=== PATIENT | female | born 1960 | race Caucasian/White ===

== ENCOUNTER 2019-10-17 22:30 | Inpatient (IN) | payer OTHER ==
[~2019-10-17] VITALS: Ht 157.5 cm; Wt 62.4 kg
[2019-10-17 22:30] VITALS: BP 128/74
[~2019-10-17 22:30] MED LIST: FentaNYL CITRATE-PF 100 MCG/2 ML VIAL IVP ONE; HYDROmorphone 2 MG/ML SYRINGE IVP ONE
[2019-10-17] MEDS ORDERED: MAGNESIUM HYDROXIDE SUSPENSION 30 ML UDCUP PO PRN (23:15)
[2019-10-17] MEDS ORDERED: ACETAMINOPHEN 325 MG TABLET PO PRN (23:15)
[2019-10-17] MEDS ORDERED: ONDANSETRON HCL 4 MG/2 ML VIAL IVP PRN (23:15)
[2019-10-17] MEDS ORDERED: BISACODYL 10 MG RECTAL RECTAL SUPPOSITORY PR PRN (23:15)
[2019-10-17] MEDS: HYDROCODONE/ACETAMINOPHEN 5-325 MG TABLET PO PRN (23:50)
[2019-10-18] MEDS: HEPARIN SODIUM,PORCINE 5,000 UNITS/ML VIAL SQ SCH ×4 (00:37→23:58)
[2019-10-18] MEDS: HYDROCODONE/ACETAMINOPHEN 5-325 MG TABLET PO PRN ×4 (03:43→18:52)
[2019-10-18 05:20] VITALS: BP 130/56
[2019-10-18] MEDS: LEVOTHYROXINE SODIUM 25 MCG TABLET PO SCH (06:24)
[2019-10-18 07:41] VITALS: BP 111/62
[2019-10-18] MEDS: PANTOPRAZOLE SODIUM 40 MG DR TABLET PO SCH (08:01)
[2019-10-18] MEDS: MULTIVITAMINS WITH MINERALS, THERAPEUTIC TABLET PO SCH (08:01)
[2019-10-18] MEDS: CLOPIDOGREL BISULFATE 75 MG TABLET PO SCH (08:01)
[2019-10-18] MEDS: LISINOPRIL 20 MG TABLET PO SCH (08:01)
[2019-10-18] MEDS: OLANZapine 5 MG TABLET PO SCH (08:02)
[2019-10-18] MEDS: ATORVASTATIN CALCIUM 40 MG TABLET PO SCH (08:02)
[2019-10-18] MEDS: CITALOPRAM HYDROBROMIDE 20 MG TABLET PO SCH (08:02)
[2019-10-18] MEDS: ASPIRIN 81 MG EC TABLET PO SCH (08:02)
[2019-10-18] MEDS: HydrOXYzine HCL 25 MG TABLET PO SCH (08:03)
[2019-10-18] MEDS: DIVALPROEX SODIUM 250 MG ER TABLET PO SCH (08:03)
[2019-10-18] MEDS: ISOSORBIDE MONONITRATE 30 MG ER TABLET PO SCH (08:04)
[2019-10-18] MEDS: POLYETHYLENE GLYCOL 3350 17 GM PACKET PO SCH (08:05)
[2019-10-18] MEDS: DOCUSATE SODIUM 100 MG CAPSULE PO SCH ×2 (08:05→20:01)
[2019-10-18 11:18] LABS: GLUCOMETER DEV NAME(LOC) 6S.1; GLUCOSE,POINT OF CARE 121 MG/DL (70-110)
[2019-10-18] MEDS: MORPHINE SULFATE 2 MG/ML SYRINGE IVP PRN ×4 (11:50→23:58)
[2019-10-18 20:00] VITALS: BP 99/50
[2019-10-18] MEDS: ZOLPIDEM TARTRATE 5 MG TABLET PO PRN (20:00)
[2019-10-18] MEDS: GABAPENTIN 100 MG CAPSULE PO SCH (20:00)
[2019-10-19 04:30] VITALS: BP 160/84
[2019-10-19] MEDS: MORPHINE SULFATE 2 MG/ML SYRINGE IVP PRN ×5 (04:31→21:18)
[2019-10-19] MEDS: LEVOTHYROXINE SODIUM 25 MCG TABLET PO SCH (06:34)
[2019-10-19 08:23] VITALS: BP 140/88
[2019-10-19] MEDS: LISINOPRIL 20 MG TABLET PO SCH (08:27)
[2019-10-19] MEDS: ASPIRIN 81 MG EC TABLET PO SCH (08:27)
[2019-10-19] MEDS: ISOSORBIDE MONONITRATE 30 MG ER TABLET PO SCH (08:27)
[2019-10-19] MEDS: DOCUSATE SODIUM 100 MG CAPSULE PO SCH ×2 (08:27→21:00)
[2019-10-19] MEDS: OLANZapine 5 MG TABLET PO SCH (08:27)
[2019-10-19] MEDS: DIVALPROEX SODIUM 250 MG ER TABLET PO SCH (08:27)
[2019-10-19] MEDS: CITALOPRAM HYDROBROMIDE 20 MG TABLET PO SCH (08:27)
[2019-10-19] MEDS: ATORVASTATIN CALCIUM 40 MG TABLET PO SCH (08:27)
[2019-10-19] MEDS: CLOPIDOGREL BISULFATE 75 MG TABLET PO SCH (08:27)
[2019-10-19] MEDS: HydrOXYzine HCL 25 MG TABLET PO SCH (08:27)
[2019-10-19] MEDS: MULTIVITAMINS WITH MINERALS, THERAPEUTIC TABLET PO SCH (08:27)
[2019-10-19] MEDS: PANTOPRAZOLE SODIUM 40 MG DR TABLET PO SCH (08:27)
[2019-10-19] MEDS: HYDROCODONE/ACETAMINOPHEN 5-325 MG TABLET PO PRN ×4 (08:28→23:58)
[2019-10-19] MEDS: HEPARIN SODIUM,PORCINE 5,000 UNITS/ML VIAL SQ SCH ×2 (08:28→17:28)
[2019-10-19] MEDS: POLYETHYLENE GLYCOL 3350 17 GM PACKET PO SCH (09:00)
[2019-10-19 14:27] LABS: EOSINOPHILS % (AUTO) 2.4 % (1.0-6.0); HEMATOCRIT 25.2 % (36-46); HEMOGLOBIN 8.1 g/dL (12.0-16.0); LYMPHOCYTES # (AUTO) 1.6 K/uL (1.0-4.8); LYMPHOCYTES % (AUTO) 20.9 % (22.0-44.0); MEAN CORPUSCULAR HEMOGLOBIN 23.9 pg (26.0-34.0); MEAN CORPUSCULAR HGB CONC 32.2 G/dL (31.0-37.0); MEAN CORPUSCULAR VOLUME 74 fL (80-100); MONOCYTES # (AUTO) 0.6 K/uL (0.1-1.0); MONOCYTES % (AUTO) 8.5 % (2.0-9.0); NEUTROPHILS # (AUTO) 5.1 K/uL (1.8-7.7); NEUTROPHILS % (AUTO) 67.2 % (40.0-70.0); PLATELET COUNT (AUTO) 575 K/uL (150-450); RED BLOOD CELL COUNT(AUTO) 3.39 MIL/uL (4.00-5.20); RED CELL DISTRIBUTION WIDTH 25.2 % (11.5-14.5)
[2019-10-19 15:49] LABS: CALCIUM, TOTAL 9.2 mg/dL (8.8-10.5); CREATININE 1.56 mg/dL (0.60-1.30)
[2019-10-19 15:55] LABS: POTASSIUM 6.3 mmol/L (3.5-5.1)
[2019-10-19] MEDS ORDERED: SODIUM POLYSTYRENE SULFONATE 15 GM/60 ML SUSPENSION BOTTLE PO ONE (16:15)
[2019-10-19 19:36] VITALS: BP 105/55
[2019-10-19] MEDS: GABAPENTIN 100 MG CAPSULE PO SCH (19:36)
[2019-10-20] MEDS: MORPHINE SULFATE 2 MG/ML SYRINGE IVP PRN ×5 (03:13→19:42)
[2019-10-20 03:46] VITALS: BP 120/74
[2019-10-20 07:18] VITALS: BP 103/62
[2019-10-20] MEDS: HEPARIN SODIUM,PORCINE 5,000 UNITS/ML VIAL SQ SCH ×3 (07:39→16:24)
[2019-10-20] MEDS: LEVOTHYROXINE SODIUM 25 MCG TABLET PO SCH (07:39)
[2019-10-20] MEDS: POLYETHYLENE GLYCOL 3350 17 GM PACKET PO SCH (09:00)
[2019-10-20] MEDS: DOCUSATE SODIUM 100 MG CAPSULE PO SCH ×2 (09:00→21:00)
[2019-10-20] MEDS: LISINOPRIL 20 MG TABLET PO SCH (09:00)
[2019-10-20 09:40] VITALS: BP 108/64
[2019-10-20] MEDS: HYDROCODONE/ACETAMINOPHEN 5-325 MG TABLET PO PRN ×4 (09:41→22:21)
[2019-10-20] MEDS: ATORVASTATIN CALCIUM 40 MG TABLET PO SCH (09:41)
[2019-10-20] MEDS: CLOPIDOGREL BISULFATE 75 MG TABLET PO SCH (09:41)
[2019-10-20] MEDS: OLANZapine 5 MG TABLET PO SCH (09:41)
[2019-10-20] MEDS: MULTIVITAMINS WITH MINERALS, THERAPEUTIC TABLET PO SCH (09:41)
[2019-10-20] MEDS: ASPIRIN 81 MG EC TABLET PO SCH (09:42)
[2019-10-20] MEDS: CITALOPRAM HYDROBROMIDE 20 MG TABLET PO SCH (09:42)
[2019-10-20] MEDS: HydrOXYzine HCL 25 MG TABLET PO SCH (09:42)
[2019-10-20] MEDS: DIVALPROEX SODIUM 250 MG ER TABLET PO SCH (09:42)
[2019-10-20] MEDS: ISOSORBIDE MONONITRATE 30 MG ER TABLET PO SCH (09:42)
[2019-10-20] MEDS: PANTOPRAZOLE SODIUM 40 MG DR TABLET PO SCH (09:42)
[2019-10-20] MEDS ORDERED: SODIUM CHLORIDE 0.9% 1,000 ML IV ONE (13:00)
[2019-10-20 13:59] LABS: CALCIUM, TOTAL 9.2 mg/dL (8.8-10.5); CREATININE 1.22 mg/dL (0.60-1.30); POTASSIUM 4.8 mmol/L (3.5-5.1)
[2019-10-20 19:25] VITALS: BP 104/59
[2019-10-20] MEDS: GABAPENTIN 100 MG CAPSULE PO SCH (19:41)
[2019-10-21] MEDS: MORPHINE SULFATE 2 MG/ML SYRINGE IVP PRN ×6 (00:28→23:09)
[2019-10-21] MEDS: HEPARIN SODIUM,PORCINE 5,000 UNITS/ML VIAL SQ SCH ×4 (00:35→23:09)
[2019-10-21 03:58] VITALS: BP 121/74
[2019-10-21] MEDS: LEVOTHYROXINE SODIUM 25 MCG TABLET PO SCH (05:59)
[2019-10-21 08:27] VITALS: BP 144/74
[2019-10-21] MEDS: DOCUSATE SODIUM 100 MG CAPSULE PO SCH ×2 (08:32→20:15)
[2019-10-21] MEDS: HydrOXYzine HCL 25 MG TABLET PO SCH (08:32)
[2019-10-21] MEDS: ATORVASTATIN CALCIUM 40 MG TABLET PO SCH (08:32)
[2019-10-21] MEDS: PANTOPRAZOLE SODIUM 40 MG DR TABLET PO SCH (08:32)
[2019-10-21] MEDS: HYDROCODONE/ACETAMINOPHEN 5-325 MG TABLET PO PRN ×3 (08:32→21:06)
[2019-10-21] MEDS: ISOSORBIDE MONONITRATE 30 MG ER TABLET PO SCH (08:32)
[2019-10-21] MEDS: OLANZapine 5 MG TABLET PO SCH (08:32)
[2019-10-21] MEDS: ASPIRIN 81 MG EC TABLET PO SCH (08:32)
[2019-10-21] MEDS: DIVALPROEX SODIUM 250 MG ER TABLET PO SCH (08:32)
[2019-10-21] MEDS: MULTIVITAMINS WITH MINERALS, THERAPEUTIC TABLET PO SCH (08:32)
[2019-10-21] MEDS: LISINOPRIL 20 MG TABLET PO SCH (08:33)
[2019-10-21] MEDS: CITALOPRAM HYDROBROMIDE 20 MG TABLET PO SCH (08:33)
[2019-10-21] MEDS: CLOPIDOGREL BISULFATE 75 MG TABLET PO SCH (08:33)
[2019-10-21] MEDS: POLYETHYLENE GLYCOL 3350 17 GM PACKET PO SCH (10:12)
[2019-10-21 11:37] VITALS: BP 98/54
[2019-10-21 20:05] VITALS: BP 88/50
[2019-10-21] MEDS: GABAPENTIN 100 MG CAPSULE PO SCH (20:15)
[2019-10-21 21:02] VITALS: BP 120/73
[2019-10-22] MEDS: HYDROCODONE/ACETAMINOPHEN 5-325 MG TABLET PO PRN ×2 (02:55→11:51)
[2019-10-22 05:24] VITALS: BP 130/78
[2019-10-22] MEDS: MORPHINE SULFATE 2 MG/ML SYRINGE IVP PRN ×3 (05:33→20:42)
[2019-10-22] MEDS: LEVOTHYROXINE SODIUM 25 MCG TABLET PO SCH (06:04)
[2019-10-22] MEDS: HEPARIN SODIUM,PORCINE 5,000 UNITS/ML VIAL SQ SCH ×3 (08:00→22:58)
[2019-10-22 08:23] VITALS: BP 133/58
[2019-10-22] MEDS: DIVALPROEX SODIUM 250 MG ER TABLET PO SCH (08:25)
[2019-10-22] MEDS: CITALOPRAM HYDROBROMIDE 20 MG TABLET PO SCH (08:25)
[2019-10-22] MEDS: OLANZapine 5 MG TABLET PO SCH (08:25)
[2019-10-22] MEDS: LISINOPRIL 20 MG TABLET PO SCH (08:25)
[2019-10-22] MEDS: ATORVASTATIN CALCIUM 40 MG TABLET PO SCH (08:26)
[2019-10-22] MEDS: DOCUSATE SODIUM 100 MG CAPSULE PO SCH ×2 (08:26→20:59)
[2019-10-22] MEDS: ISOSORBIDE MONONITRATE 30 MG ER TABLET PO SCH (08:26)
[2019-10-22] MEDS: MULTIVITAMINS WITH MINERALS, THERAPEUTIC TABLET PO SCH (08:26)
[2019-10-22] MEDS: PANTOPRAZOLE SODIUM 40 MG DR TABLET PO SCH (08:27)
[2019-10-22] MEDS: HydrOXYzine HCL 25 MG TABLET PO SCH (08:27)
[2019-10-22] MEDS: ASPIRIN 81 MG EC TABLET PO SCH (08:28)
[2019-10-22] MEDS: POLYETHYLENE GLYCOL 3350 17 GM PACKET PO SCH (08:28)
[2019-10-22] MEDS: CLOPIDOGREL BISULFATE 75 MG TABLET PO SCH (08:28)
[2019-10-22 09:33] LABS: BASOPHILS % (AUTO) 0.8 % (0.0-2.0); EOSINOPHILS % (AUTO) 2.8 % (1.0-6.0); HEMATOCRIT 25.7 % (36-46); HEMOGLOBIN 8.1 g/dL (12.0-16.0); LYMPHOCYTES # (AUTO) 1.8 K/uL (1.0-4.8); LYMPHOCYTES % (AUTO) 25.3 % (22.0-44.0); MEAN CORPUSCULAR HEMOGLOBIN 23.4 pg (26.0-34.0); MEAN CORPUSCULAR HGB CONC 31.6 G/dL (31.0-37.0); MEAN CORPUSCULAR VOLUME 74 fL (80-100); MONOCYTES # (AUTO) 0.8 K/uL (0.1-1.0); MONOCYTES % (AUTO) 11.1 % (2.0-9.0); NEUTROPHILS # (AUTO) 4.2 K/uL (1.8-7.7); PLATELET COUNT (AUTO) 642 K/uL (150-450); RED BLOOD CELL COUNT(AUTO) 3.47 MIL/uL (4.00-5.20); RED CELL DISTRIBUTION WIDTH 24.7 % (11.5-14.5)
[2019-10-22 09:45] LABS: CALCIUM, TOTAL 9.3 mg/dL (8.8-10.5); CREATININE 1.2 mg/dL (0.60-1.30); POTASSIUM 5.5 mmol/L (3.5-5.1)
[2019-10-22 09:49] LABS: PROTHROMBIN TIME 10.4 SEC (9.4-11.6)
[2019-10-22] MEDS ORDERED: VANCOMYCIN HCL 1 GM/VIAL ONE (10:20)
[2019-10-22] MEDS ORDERED: GELATIN SPONGE,ABSORBABLE 50 MM TP ONE (10:20)
[2019-10-22] MEDS ORDERED: BUPIVACAINE HCL/PF 0.5% 30 ML VIAL ONE (10:20)
[2019-10-22] MEDS ORDERED: MUPIROCIN CALCIUM 2% 22 GM OINTMENT ONE (10:20)
[2019-10-22] MEDS ORDERED: SODIUM CL IRRIG SOLN BAG 3,000 ML IRRIG ONE (10:20)
[2019-10-22] MEDS ORDERED: MICROFIBRILLAR COLLAGEN 1 GM PACKAGE TP ONE (10:20)
[2019-10-22] MEDS ORDERED: THROMBIN, BOVINE 20000 UNITS/VIAL POWDER TP ONE (10:21)
[2019-10-22] MEDS ORDERED: BUPIVACAINE LIPOSOME/PF 1.3%-13.3MG/ML SUSPENSION 10 ML VIAL INJ ONE (10:30)
[2019-10-22] MEDS ORDERED: NEOSTIGMINE METHYLSULFATE 1 MG/ML 10 ML VIAL IVP ONE (12:00)
[2019-10-22] MEDS ORDERED: GLYCOPYRROLATE 0.2 MG/ML VIAL IM ONE (12:00)
[2019-10-22] MEDS ORDERED: ONDANSETRON HCL 4 MG/2 ML VIAL IVP ONE (12:00)
[2019-10-22] MEDS ORDERED: ROCURONIUM BROMIDE 10 MG/ML 5 ML VIAL IVP ONE (12:00)
[2019-10-22] MEDS ORDERED: LIDOCAINE/PF 2% 5 ML VIAL INJ ONE (12:00)
[2019-10-22] MEDS ORDERED: PROPOFOL 1% 20 ML VIAL IVP ONE (12:00)
[2019-10-22] MEDS ORDERED: 0.9% SODIUM CHLORIDE 10 ML VIAL IVP ONE (12:00)
[2019-10-22] MEDS ORDERED: EPHEDrine SULFATE 50 MG/ML VIAL IM ONE (12:00)
[2019-10-22] MEDS ORDERED: RINGERS SOLUTION,LACTATED 1,000 ML IV ONE ×2 (13:11→13:30)
[2019-10-22] MEDS ORDERED: BUPIVACAINE HCL/PF 0.25% 30 ML VIAL ONE (15:11)
[2019-10-22] MEDS ORDERED: HYDROmorphone 2 MG/ML SYRINGE ONE (16:57)
[2019-10-22 20:07] VITALS: BP 130/76
[2019-10-22] MEDS: ZOLPIDEM TARTRATE 5 MG TABLET PO PRN (20:42)
[2019-10-22] MEDS: GABAPENTIN 100 MG CAPSULE PO SCH (20:43)
[2019-10-22] MEDS: CeFAZolin 1 GM/DEXTROSE 50 ML IV SCH (21:59)
[2019-10-22] MEDS ORDERED: MORPHINE SULFATE 2 MG/ML SYRINGE IVP ONE (22:45)
[2019-10-23] MEDS: MORPHINE SULFATE 2 MG/ML SYRINGE IVP PRN ×3 (03:17→15:09)
[2019-10-23] MEDS: LEVOTHYROXINE SODIUM 25 MCG TABLET PO SCH (06:11)
[2019-10-23] MEDS: CeFAZolin 1 GM/DEXTROSE 50 ML IV SCH ×3 (06:14→21:47)
[2019-10-23] MEDS: HYDROCODONE/ACETAMINOPHEN 5-325 MG TABLET PO PRN ×3 (06:14→20:41)
[2019-10-23 07:15] LABS: BASOPHILS % (AUTO) 0.8 % (0.0-2.0); EOSINOPHILS % (AUTO) 2.3 % (1.0-6.0); HEMATOCRIT 24.8 % (36-46); HEMOGLOBIN 7.8 g/dL (12.0-16.0); LYMPHOCYTES # (AUTO) 1.5 K/uL (1.0-4.8); LYMPHOCYTES % (AUTO) 21.9 % (22.0-44.0); MEAN CORPUSCULAR HEMOGLOBIN 23.7 pg (26.0-34.0); MEAN CORPUSCULAR HGB CONC 31.3 G/dL (31.0-37.0); MEAN CORPUSCULAR VOLUME 76 fL (80-100); MONOCYTES # (AUTO) 0.8 K/uL (0.1-1.0); MONOCYTES % (AUTO) 11.7 % (2.0-9.0); NEUTROPHILS # (AUTO) 4.3 K/uL (1.8-7.7); NEUTROPHILS % (AUTO) 63.3 % (40.0-70.0); PLATELET COUNT (AUTO) 688 K/uL (150-450); RED BLOOD CELL COUNT(AUTO) 3.28 MIL/uL (4.00-5.20)
[2019-10-23 07:46] LABS: % IRON SATURATION 3.7 % (22-44)
[2019-10-23 08:07] LABS: CALCIUM, TOTAL 9.4 mg/dL (8.8-10.5); CREATININE 1.35 mg/dL (0.60-1.30)
[2019-10-23] MEDS: POLYETHYLENE GLYCOL 3350 17 GM PACKET PO SCH (08:08)
[2019-10-23] MEDS: CITALOPRAM HYDROBROMIDE 20 MG TABLET PO SCH (08:08)
[2019-10-23] MEDS: DIVALPROEX SODIUM 250 MG ER TABLET PO SCH (08:08)
[2019-10-23] MEDS: ISOSORBIDE MONONITRATE 30 MG ER TABLET PO SCH (08:08)
[2019-10-23] MEDS: HydrOXYzine HCL 25 MG TABLET PO SCH (08:09)
[2019-10-23] MEDS: ATORVASTATIN CALCIUM 40 MG TABLET PO SCH (08:09)
[2019-10-23] MEDS: HEPARIN SODIUM,PORCINE 5,000 UNITS/ML VIAL SQ SCH ×2 (08:09→17:16)
[2019-10-23] MEDS: LISINOPRIL 20 MG TABLET PO SCH (08:10)
[2019-10-23] MEDS: DOCUSATE SODIUM 100 MG CAPSULE PO SCH ×2 (08:10→20:40)
[2019-10-23] MEDS: MULTIVITAMINS WITH MINERALS, THERAPEUTIC TABLET PO SCH (08:10)
[2019-10-23] MEDS: ASPIRIN 81 MG EC TABLET PO SCH (08:10)
[2019-10-23] MEDS: CLOPIDOGREL BISULFATE 75 MG TABLET PO SCH (08:10)
[2019-10-23] MEDS: OLANZapine 5 MG TABLET PO SCH (08:10)
[2019-10-23] MEDS: PANTOPRAZOLE SODIUM 40 MG DR TABLET PO SCH (08:10)
[2019-10-23 12:28] VITALS: BP 21/69
[2019-10-23] MEDS: FERROUS SULFATE 325 MG EC TABLET PO SCH (18:30)
[2019-10-23 20:19] VITALS: BP 92/62
[2019-10-23] MEDS: GABAPENTIN 100 MG CAPSULE PO SCH (20:40)
[2019-10-23] MEDS: ZOLPIDEM TARTRATE 5 MG TABLET PO PRN (21:43)
[2019-10-24] MEDS: MORPHINE SULFATE 2 MG/ML SYRINGE IVP PRN ×5 (00:56→17:12)
[2019-10-24] MEDS: HYDROCODONE/ACETAMINOPHEN 5-325 MG TABLET PO PRN ×3 (02:19→20:05)
[2019-10-24] MEDS: CeFAZolin 1 GM/DEXTROSE 50 ML IV SCH ×2 (05:53→15:26)
[2019-10-24] MEDS: LEVOTHYROXINE SODIUM 25 MCG TABLET PO SCH (05:54)
[2019-10-24] MEDS: DOCUSATE SODIUM 100 MG CAPSULE PO SCH ×2 (09:00→20:03)
[2019-10-24] MEDS: LISINOPRIL 20 MG TABLET PO SCH (09:00)
[2019-10-24 10:12] VITALS: BP 123/56
[2019-10-24] MEDS: POLYETHYLENE GLYCOL 3350 17 GM PACKET PO SCH (10:15)
[2019-10-24] MEDS: ISOSORBIDE MONONITRATE 30 MG ER TABLET PO SCH (10:15)
[2019-10-24] MEDS: ATORVASTATIN CALCIUM 40 MG TABLET PO SCH (10:16)
[2019-10-24] MEDS: CITALOPRAM HYDROBROMIDE 20 MG TABLET PO SCH (10:16)
[2019-10-24] MEDS: OLANZapine 5 MG TABLET PO SCH (10:16)
[2019-10-24] MEDS: HydrOXYzine HCL 25 MG TABLET PO SCH (10:16)
[2019-10-24] MEDS: MULTIVITAMINS WITH MINERALS, THERAPEUTIC TABLET PO SCH (10:16)
[2019-10-24] MEDS: DIVALPROEX SODIUM 250 MG ER TABLET PO SCH (10:16)
[2019-10-24] MEDS: FERROUS SULFATE 325 MG EC TABLET PO SCH ×3 (10:16→17:15)
[2019-10-24] MEDS: ASPIRIN 81 MG EC TABLET PO SCH (10:17)
[2019-10-24] MEDS: HEPARIN SODIUM,PORCINE 5,000 UNITS/ML VIAL SQ SCH ×3 (10:17→17:12)
[2019-10-24] MEDS: CLOPIDOGREL BISULFATE 75 MG TABLET PO SCH (10:17)
[2019-10-24] MEDS: PANTOPRAZOLE SODIUM 40 MG DR TABLET PO SCH (10:18)
[2019-10-24 11:36] VITALS: BP 124/70
[2019-10-24 13:01] LABS: BASOPHILS % (AUTO) 0.8 % (0.0-2.0); EOSINOPHILS % (AUTO) 2.8 % (1.0-6.0); HEMATOCRIT 28.4 % (36-46); HEMOGLOBIN 8.9 g/dL (12.0-16.0); LYMPHOCYTES # (AUTO) 2.2 K/uL (1.0-4.8); LYMPHOCYTES % (AUTO) 27.4 % (22.0-44.0); MEAN CORPUSCULAR HEMOGLOBIN 23.7 pg (26.0-34.0); MEAN CORPUSCULAR HGB CONC 31.1 G/dL (31.0-37.0); MEAN CORPUSCULAR VOLUME 76 fL (80-100); MONOCYTES # (AUTO) 0.8 K/uL (0.1-1.0); MONOCYTES % (AUTO) 9.8 % (2.0-9.0); NEUTROPHILS # (AUTO) 4.8 K/uL (1.8-7.7); NEUTROPHILS % (AUTO) 59.2 % (40.0-70.0); RED BLOOD CELL COUNT(AUTO) 3.74 MIL/uL (4.00-5.20); RED CELL DISTRIBUTION WIDTH 24.9 % (11.5-14.5)
[2019-10-24 13:04] LABS: CALCIUM, TOTAL 9.5 mg/dL (8.8-10.5); CREATININE 1.34 mg/dL (0.60-1.30); POTASSIUM 4.8 mmol/L (3.5-5.1)
[2019-10-24 13:08] LABS: PLATELET COUNT (AUTO) 771 K/uL (150-450)
[2019-10-24 15:47] VITALS: BP 93/60
[2019-10-24 17:05] VITALS: BP 119/66
[2019-10-24] MEDS: GABAPENTIN 100 MG CAPSULE PO SCH (20:03)
[2019-10-24 20:48] VITALS: BP 108/48
[2019-10-25] MEDS: MORPHINE SULFATE 2 MG/ML SYRINGE IVP PRN ×3 (00:13→10:59)
[2019-10-25] MEDS: HEPARIN SODIUM,PORCINE 5,000 UNITS/ML VIAL SQ SCH ×3 (00:13→16:48)
[2019-10-25] MEDS: LEVOTHYROXINE SODIUM 25 MCG TABLET PO SCH (06:09)
[2019-10-25 07:32] LABS: CALCIUM, TOTAL 9.6 mg/dL (8.8-10.5); CREATININE 1.36 mg/dL (0.60-1.30); POTASSIUM 5.1 mmol/L (3.5-5.1)
[2019-10-25 07:46] LABS: BASOPHILS % (AUTO) 1.1 % (0.0-2.0); HEMOGLOBIN 8.6 g/dL (12.0-16.0); LYMPHOCYTES # (AUTO) 2.7 K/uL (1.0-4.8); LYMPHOCYTES % (AUTO) 33.1 % (22.0-44.0); MEAN CORPUSCULAR HEMOGLOBIN 24.2 pg (26.0-34.0); MEAN CORPUSCULAR HGB CONC 31.8 G/dL (31.0-37.0); MEAN CORPUSCULAR VOLUME 76 fL (80-100); MONOCYTES # (AUTO) 0.9 K/uL (0.1-1.0); MONOCYTES % (AUTO) 11.7 % (2.0-9.0); NEUTROPHILS # (AUTO) 4.1 K/uL (1.8-7.7); NEUTROPHILS % (AUTO) 51.1 % (40.0-70.0); PLATELET COUNT (AUTO) 713 K/uL (150-450); RED BLOOD CELL COUNT(AUTO) 3.54 MIL/uL (4.00-5.20); RED CELL DISTRIBUTION WIDTH 23.4 % (11.5-14.5)
[2019-10-25] MEDS: DIVALPROEX SODIUM 250 MG ER TABLET PO SCH (08:29)
[2019-10-25] MEDS: ASPIRIN 81 MG EC TABLET PO SCH (08:29)
[2019-10-25] MEDS: CITALOPRAM HYDROBROMIDE 20 MG TABLET PO SCH (08:29)
[2019-10-25] MEDS: ATORVASTATIN CALCIUM 40 MG TABLET PO SCH (08:29)
[2019-10-25] MEDS: CLOPIDOGREL BISULFATE 75 MG TABLET PO SCH (08:29)
[2019-10-25] MEDS: POLYETHYLENE GLYCOL 3350 17 GM PACKET PO SCH (08:30)
[2019-10-25] MEDS: PANTOPRAZOLE SODIUM 40 MG DR TABLET PO SCH (08:30)
[2019-10-25] MEDS: OLANZapine 5 MG TABLET PO SCH (08:30)
[2019-10-25] MEDS: LISINOPRIL 20 MG TABLET PO SCH (08:30)
[2019-10-25] MEDS: FERROUS SULFATE 325 MG EC TABLET PO SCH ×3 (08:30→16:48)
[2019-10-25] MEDS: HydrOXYzine HCL 25 MG TABLET PO SCH (08:30)
[2019-10-25] MEDS: DOCUSATE SODIUM 100 MG CAPSULE PO SCH ×2 (08:30→20:15)
[2019-10-25] MEDS: ISOSORBIDE MONONITRATE 30 MG ER TABLET PO SCH (08:30)
[2019-10-25] MEDS: MULTIVITAMINS WITH MINERALS, THERAPEUTIC TABLET PO SCH (08:30)
[2019-10-25 08:39] VITALS: BP 104/56
[2019-10-25] MEDS: HYDROCODONE/ACETAMINOPHEN 5-325 MG TABLET PO PRN (09:33)
[2019-10-25] MEDS ORDERED: PNEUMOCOCCAL VACCINE POLYVALENT 0.5 ML VIAL [PPSV23] IM ONE (13:15)
[2019-10-25] MEDS ORDERED: MAGNESIUM HYDROXIDE SUSPENSION 30 ML UDCUP PO PRN (13:15)
[2019-10-25] MEDS: OxyCODONE HCL/ACETAMINOPHEN 5-325 MG TABLET PO PRN ×2 (15:06→18:56)
[2019-10-25 16:30] VITALS: BP 120/75
[2019-10-25] MEDS: GABAPENTIN 100 MG CAPSULE PO SCH (20:15)
[2019-10-26] MEDS: HEPARIN SODIUM,PORCINE 5,000 UNITS/ML VIAL SQ SCH ×3 (00:07→16:03)
[2019-10-26] MEDS: OxyCODONE HCL/ACETAMINOPHEN 5-325 MG TABLET PO PRN ×4 (00:59→20:53)
[2019-10-26 04:00] VITALS: BP 131/54
[2019-10-26] MEDS: LEVOTHYROXINE SODIUM 25 MCG TABLET PO SCH (05:47)
[2019-10-26] MEDS: HYDROCODONE/ACETAMINOPHEN 5-325 MG TABLET PO PRN (05:47)
[2019-10-26 08:17] VITALS: BP 130/62
[2019-10-26] MEDS: OLANZapine 5 MG TABLET PO SCH (08:29)
[2019-10-26] MEDS: FERROUS SULFATE 325 MG EC TABLET PO SCH ×3 (08:29→18:45)
[2019-10-26] MEDS: CLOPIDOGREL BISULFATE 75 MG TABLET PO SCH (08:30)
[2019-10-26] MEDS: DOCUSATE SODIUM 100 MG CAPSULE PO SCH ×2 (08:30→20:43)
[2019-10-26] MEDS: MULTIVITAMINS WITH MINERALS, THERAPEUTIC TABLET PO SCH (08:36)
[2019-10-26] MEDS: ASPIRIN 81 MG EC TABLET PO SCH (08:36)
[2019-10-26] MEDS: LISINOPRIL 20 MG TABLET PO SCH (08:36)
[2019-10-26] MEDS: ATORVASTATIN CALCIUM 40 MG TABLET PO SCH (08:38)
[2019-10-26] MEDS: ISOSORBIDE MONONITRATE 30 MG ER TABLET PO SCH (08:38)
[2019-10-26] MEDS: HydrOXYzine HCL 25 MG TABLET PO SCH (08:39)
[2019-10-26] MEDS: POLYETHYLENE GLYCOL 3350 17 GM PACKET PO SCH (08:39)
[2019-10-26] MEDS: GABAPENTIN 100 MG CAPSULE PO SCH (08:39)
[2019-10-26] MEDS: CITALOPRAM HYDROBROMIDE 20 MG TABLET PO SCH (08:39)
[2019-10-26] MEDS: DIVALPROEX SODIUM 250 MG ER TABLET PO SCH (08:39)
[2019-10-26] MEDS: PANTOPRAZOLE SODIUM 40 MG DR TABLET PO SCH (08:40)
[2019-10-26 13:22] LABS: BASOPHILS % (AUTO) 1.3 % (0.0-2.0); EOSINOPHILS % (AUTO) 3.2 % (1.0-6.0); HEMATOCRIT 25.4 % (36-46); HEMOGLOBIN 8.1 g/dL (12.0-16.0); LYMPHOCYTES # (AUTO) 2.4 K/uL (1.0-4.8); LYMPHOCYTES % (AUTO) 30.6 % (22.0-44.0); MEAN CORPUSCULAR HEMOGLOBIN 24.1 pg (26.0-34.0); MEAN CORPUSCULAR HGB CONC 31.7 G/dL (31.0-37.0); MEAN CORPUSCULAR VOLUME 76 fL (80-100); MONOCYTES # (AUTO) 0.8 K/uL (0.1-1.0); MONOCYTES % (AUTO) 10.1 % (2.0-9.0); NEUTROPHILS # (AUTO) 4.3 K/uL (1.8-7.7); NEUTROPHILS % (AUTO) 54.8 % (40.0-70.0); RED BLOOD CELL COUNT(AUTO) 3.35 MIL/uL (4.00-5.20); RED CELL DISTRIBUTION WIDTH 24.5 % (11.5-14.5)
[2019-10-26 13:35] LABS: PLATELET COUNT (AUTO) 788 K/uL (150-450)
[2019-10-26 13:51] LABS: CALCIUM, TOTAL 9.2 mg/dL (8.8-10.5); CREATININE 1.45 mg/dL (0.60-1.30)
[2019-10-26 20:00] VITALS: BP_SYST 116; BP_SYST 131; BP_DIAS 54; BP_DIAS 59
[2019-10-27] MEDS: HEPARIN SODIUM,PORCINE 5,000 UNITS/ML VIAL SQ SCH ×3 (00:11→17:25)
[2019-10-27] MEDS: HYDROCODONE/ACETAMINOPHEN 5-325 MG TABLET PO PRN ×4 (02:53→18:25)
[2019-10-27] MEDS: OxyCODONE HCL/ACETAMINOPHEN 5-325 MG TABLET PO PRN ×4 (03:13→22:29)
[2019-10-27 04:00] VITALS: BP 111/51
[2019-10-27] MEDS: LEVOTHYROXINE SODIUM 25 MCG TABLET PO SCH (05:44)
[2019-10-27 08:05] VITALS: BP 139/79
[2019-10-27] MEDS: OLANZapine 5 MG TABLET PO SCH (08:40)
[2019-10-27] MEDS: ATORVASTATIN CALCIUM 40 MG TABLET PO SCH (08:40)
[2019-10-27] MEDS: ASPIRIN 81 MG EC TABLET PO SCH (08:41)
[2019-10-27] MEDS: FERROUS SULFATE 325 MG EC TABLET PO SCH ×3 (08:41→17:24)
[2019-10-27] MEDS: CITALOPRAM HYDROBROMIDE 20 MG TABLET PO SCH (08:41)
[2019-10-27] MEDS: CLOPIDOGREL BISULFATE 75 MG TABLET PO SCH (08:41)
[2019-10-27] MEDS: HydrOXYzine HCL 25 MG TABLET PO SCH (08:41)
[2019-10-27] MEDS: PANTOPRAZOLE SODIUM 40 MG DR TABLET PO SCH (08:41)
[2019-10-27] MEDS: DOCUSATE SODIUM 100 MG CAPSULE PO SCH ×2 (08:42→20:40)
[2019-10-27] MEDS: ISOSORBIDE MONONITRATE 30 MG ER TABLET PO SCH (08:42)
[2019-10-27] MEDS: MULTIVITAMINS WITH MINERALS, THERAPEUTIC TABLET PO SCH (08:42)
[2019-10-27] MEDS: DIVALPROEX SODIUM 250 MG ER TABLET PO SCH (08:42)
[2019-10-27] MEDS: LISINOPRIL 20 MG TABLET PO SCH (09:00)
[2019-10-27] MEDS: POLYETHYLENE GLYCOL 3350 17 GM PACKET PO SCH (09:00)
[2019-10-27 15:12] VITALS: BP 122/72
[2019-10-27] MEDS: ZOLPIDEM TARTRATE 5 MG TABLET PO PRN (20:40)
[2019-10-27] MEDS: GABAPENTIN 100 MG CAPSULE PO SCH (20:40)
[2019-10-27 21:37] VITALS: BP 118/70
[2019-10-28] MEDS: HYDROCODONE/ACETAMINOPHEN 5-325 MG TABLET PO PRN ×3 (03:07→19:57)
[2019-10-28] MEDS: LEVOTHYROXINE SODIUM 25 MCG TABLET PO SCH (05:40)
[2019-10-28] MEDS: OxyCODONE HCL/ACETAMINOPHEN 5-325 MG TABLET PO PRN ×3 (06:59→23:57)
[2019-10-28 07:01] LABS: BASOPHILS % (AUTO) 1.5 % (0.0-2.0); EOSINOPHILS % (AUTO) 3.4 % (1.0-6.0); HEMATOCRIT 26.8 % (36-46); HEMOGLOBIN 8.5 g/dL (12.0-16.0); LYMPHOCYTES # (AUTO) 2.1 K/uL (1.0-4.8); LYMPHOCYTES % (AUTO) 33.8 % (22.0-44.0); MEAN CORPUSCULAR HEMOGLOBIN 24.4 pg (26.0-34.0); MEAN CORPUSCULAR HGB CONC 31.7 G/dL (31.0-37.0); MEAN CORPUSCULAR VOLUME 77 fL (80-100); MONOCYTES # (AUTO) 0.6 K/uL (0.1-1.0); MONOCYTES % (AUTO) 9.4 % (2.0-9.0); NEUTROPHILS # (AUTO) 3.2 K/uL (1.8-7.7); NEUTROPHILS % (AUTO) 51.9 % (40.0-70.0); RED BLOOD CELL COUNT(AUTO) 3.49 MIL/uL (4.00-5.20); RED CELL DISTRIBUTION WIDTH 24.8 % (11.5-14.5)
[2019-10-28 07:12] LABS: CALCIUM, TOTAL 9.2 mg/dL (8.8-10.5); CREATININE 1.71 mg/dL (0.60-1.30); POTASSIUM 5.4 mmol/L (3.5-5.1)
[2019-10-28 07:13] LABS: PLATELET COUNT (AUTO) 825 K/uL (150-450)
[2019-10-28 07:29] VITALS: BP 95/55
[2019-10-28] MEDS: LISINOPRIL 20 MG TABLET PO SCH (09:00)
[2019-10-28] MEDS: POLYETHYLENE GLYCOL 3350 17 GM PACKET PO SCH (09:00)
[2019-10-28] MEDS: HydrOXYzine HCL 25 MG TABLET PO SCH (09:15)
[2019-10-28] MEDS: MULTIVITAMINS WITH MINERALS, THERAPEUTIC TABLET PO SCH (09:15)
[2019-10-28] MEDS: OLANZapine 5 MG TABLET PO SCH (09:15)
[2019-10-28] MEDS: PANTOPRAZOLE SODIUM 40 MG DR TABLET PO SCH (09:15)
[2019-10-28] MEDS: DOCUSATE SODIUM 100 MG CAPSULE PO SCH ×2 (09:15→21:03)
[2019-10-28] MEDS: FERROUS SULFATE 325 MG EC TABLET PO SCH ×3 (09:15→17:56)
[2019-10-28] MEDS: ASPIRIN 81 MG EC TABLET PO SCH (09:15)
[2019-10-28] MEDS: HEPARIN SODIUM,PORCINE 5,000 UNITS/ML VIAL SQ SCH ×4 (09:15→23:57)
[2019-10-28] MEDS: CLOPIDOGREL BISULFATE 75 MG TABLET PO SCH (09:15)
[2019-10-28] MEDS: ISOSORBIDE MONONITRATE 30 MG ER TABLET PO SCH (09:15)
[2019-10-28] MEDS: DIVALPROEX SODIUM 250 MG ER TABLET PO SCH (09:15)
[2019-10-28] MEDS: CITALOPRAM HYDROBROMIDE 20 MG TABLET PO SCH (09:16)
[2019-10-28] MEDS: ATORVASTATIN CALCIUM 40 MG TABLET PO SCH (09:16)
[2019-10-28] MEDS ORDERED: SODIUM CHLORIDE 0.9% 1,000 ML ONE (09:23)
[2019-10-28] MEDS ORDERED: SODIUM CHLORIDE 0.9% 1,000 ML IV SCH (09:30)
[2019-10-28 15:57] VITALS: BP 102/52
[2019-10-28 19:22] LABS: CREATININE 1.63 mg/dL (0.60-1.30); POTASSIUM 4.8 mmol/L (3.5-5.1)
[2019-10-28 19:54] VITALS: BP 94/51
[2019-10-28] MEDS: GABAPENTIN 100 MG CAPSULE PO SCH (21:03)
[2019-10-28 23:30] VITALS: BP 106/72
[2019-10-29 06:05] VITALS: BP 117/56
[2019-10-29] MEDS: OxyCODONE HCL/ACETAMINOPHEN 5-325 MG TABLET PO PRN ×2 (06:07→11:56)
[2019-10-29] MEDS: LEVOTHYROXINE SODIUM 25 MCG TABLET PO SCH (06:07)
[2019-10-29 07:26] VITALS: BP 112/75
[2019-10-29] MEDS: FERROUS SULFATE 325 MG EC TABLET PO SCH ×2 (08:09→11:55)
[2019-10-29] MEDS: ATORVASTATIN CALCIUM 40 MG TABLET PO SCH (08:09)
[2019-10-29] MEDS: MULTIVITAMINS WITH MINERALS, THERAPEUTIC TABLET PO SCH (08:10)
[2019-10-29] MEDS: ASPIRIN 81 MG EC TABLET PO SCH (08:10)
[2019-10-29] MEDS: PANTOPRAZOLE SODIUM 40 MG DR TABLET PO SCH (08:11)
[2019-10-29] MEDS: OLANZapine 5 MG TABLET PO SCH (08:11)
[2019-10-29] MEDS: DOCUSATE SODIUM 100 MG CAPSULE PO SCH (08:11)
[2019-10-29] MEDS: ISOSORBIDE MONONITRATE 30 MG ER TABLET PO SCH (08:11)
[2019-10-29] MEDS: LISINOPRIL 20 MG TABLET PO SCH (08:11)
[2019-10-29] MEDS: CLOPIDOGREL BISULFATE 75 MG TABLET PO SCH (08:11)
[2019-10-29] MEDS: DIVALPROEX SODIUM 250 MG ER TABLET PO SCH (08:11)
[2019-10-29] MEDS: HydrOXYzine HCL 25 MG TABLET PO SCH (08:11)
[2019-10-29] MEDS: POLYETHYLENE GLYCOL 3350 17 GM PACKET PO SCH (08:12)
[2019-10-29] MEDS: HEPARIN SODIUM,PORCINE 5,000 UNITS/ML VIAL SQ SCH (08:12)
[2019-10-29] MEDS: CITALOPRAM HYDROBROMIDE 20 MG TABLET PO SCH (08:13)
[2019-10-29 08:24] LABS: BASOPHILS % (AUTO) 2.1 % (0.0-2.0); EOSINOPHILS % (AUTO) 3.5 % (1.0-6.0); HEMATOCRIT 27.4 % (36-46); HEMOGLOBIN 8.7 g/dL (12.0-16.0); LYMPHOCYTES # (AUTO) 2.5 K/uL (1.0-4.8); LYMPHOCYTES % (AUTO) 35.3 % (22.0-44.0); MEAN CORPUSCULAR HEMOGLOBIN 24.9 pg (26.0-34.0); MEAN CORPUSCULAR HGB CONC 31.7 G/dL (31.0-37.0); MEAN CORPUSCULAR VOLUME 79 fL (80-100); MONOCYTES # (AUTO) 0.6 K/uL (0.1-1.0); MONOCYTES % (AUTO) 8.6 % (2.0-9.0); NEUTROPHILS # (AUTO) 3.5 K/uL (1.8-7.7); NEUTROPHILS % (AUTO) 50.5 % (40.0-70.0); RED BLOOD CELL COUNT(AUTO) 3.49 MIL/uL (4.00-5.20)
[2019-10-29 08:28] LABS: PLATELET COUNT (AUTO) 821 K/uL (150-450)
[2019-10-29 08:39] LABS: CALCIUM, TOTAL 9.5 mg/dL (8.8-10.5); CREATININE 1.48 mg/dL (0.60-1.30); POTASSIUM 5.3 mmol/L (3.5-5.1)
[2019-10-29] MEDS ORDERED: ATOR40TA28 PO (14:24)
[2019-10-29] MEDS ORDERED: ASPI-1111 PO (14:24)
[2019-10-29] MEDS ORDERED: CITA-144 PO (14:25)
[2019-10-29] MEDS ORDERED: FERR-89 PO (14:25)
[2019-10-29] MEDS ORDERED: CLOP-31 PO (14:25)
[2019-10-29] MEDS ORDERED: DIVA-85 PO (14:25)
[2019-10-29] MEDS ORDERED: GABA-1216 PO (14:26)
[2019-10-29] MEDS ORDERED: HYD25 PO (14:26)
[2019-10-29] MEDS ORDERED: ISOS30TA6 PO (14:26)
[2019-10-29] MEDS ORDERED: LISI-662 PO (14:27)
[2019-10-29] MEDS ORDERED: LEVO25TA9 PO (14:27)
[2019-10-29] MEDS ORDERED: POLY17PO47 PO (14:28)
[2019-10-29] MEDS ORDERED: MULT-1239 PO (14:28)
[2019-10-29] MEDS ORDERED: OLAN5TAB40 PO (14:28)
[2019-10-29] MEDS ORDERED: HYDR-4061 PO (14:29)
== END 2019-10-29 17:15 | DRG 516 ==
LOC: 6S 22:30
PROVIDERS: ADMIT Internal Medicine; ATTEND Internal Medicine
PROC: 0PBB0ZZ Excision of Left Clavicle, Open Approach (ICD-10-PCS; 2019-10-22)
PROC: 0PSB04Z Reposition Left Clavicle with Internal Fixation Device, Open Approach (ICD-10-PCS; principal; 2019-10-22 14:30)
DX: S42.002A Fracture of unspecified part of left clavicle, initial encounter for closed fracture (principal); S22.42XA Multiple fractures of ribs, left side, initial encounter for closed fracture; N17.9 Acute kidney failure, unspecified; I69.359 Hemiplegia and hemiparesis following cerebral infarction affecting unspecified side; I12.9 Hypertensive chronic kidney disease with stage 1 through stage 4 chronic kidney disease, or unspecified chronic kidney disease; J44.9 Chronic obstructive pulmonary disease, unspecified; N18.9 Chronic kidney disease, unspecified; E03.9 Hypothyroidism, unspecified; K59.00 Constipation, unspecified; G89.29 Other chronic pain; E87.5 Hyperkalemia; W18.39XA Other fall on same level, initial encounter; Z20.828 Contact with and (suspected) exposure to other viral communicable diseases; Z90.49 Acquired absence of other specified parts of digestive tract; Z90.710 Acquired absence of both cervix and uterus; Y93.89 Activity, other specified; Y92.89 Other specified places as the place of occurrence of the external cause; Y99.8 Other external cause status
CPT/HCPCS: 71111; 73200; 76881; 82728; 83540; 83550; 87426; 88307; 88311; 90732; 93005; 97116; 97162; 97166; 97168; 97530; 97535; G0238; J0690; J1170; J1644; J2270; J2405; J2704; J3010; J3370; J3490; J7030; J7120; 36415-L1; 36415-TC; 71045-TC; C1716

== ENCOUNTER 2020-11-29 03:40 | Emergency (ER) | payer OTHER ==
[~2020-11-29] VITALS: Ht 157.5 cm; Wt 63.6 kg
[~2020-11-29 03:40] MED LIST changes: +ASPI-1444 PO; +ATOR40TA28 PO; +CITA-144 PO; +CLOP75TA60 PO; +DIVA-85 PO; +FERR-89 PO; -FentaNYL CITRATE-PF 100 MCG/2 ML VIAL IVP ONE; +GABA-1216 PO; +HYD25 PO; +HYDR-4061 PO; -HYDROmorphone 2 MG/ML SYRINGE IVP ONE; +ISOS30TA92 PO; +LEVO25TA9 PO; +LISI-894 PO; +MULT-1239 PO; +OLAN5TAB94 PO; +POLY17PO47 PO
[2020-11-29 03:44] VITALS: BP 159/108
== END 2020-11-29 03:59 | disposition left against medical advice (07) ==
LOC: EMS 03:40
DX: M25.552 Pain in left hip (principal); Z53.21 Procedure and treatment not carried out due to patient leaving prior to being seen by health care provider